=== PATIENT | female | born 2000 | race American Indian/Alaskan Native ===

== ENCOUNTER 2024-07-13 20:14 | Observation (INO) | payer OTHER, SELFPAY ==
[2024-07-13] VITALS (7 sets, daily range): BP systolic 140–151; BP diastolic 75–89; PULSE 125–140; RESP 18–32; TEMP 36.7; O2SAT 97–100; BMI 52.0
--- NOTE | 2024-07-13 20:43 | EKG_ITS ---
[place] [id number] [place] [id number] Test Date: 2024-07-13 Pat Name: Primo Syed Department: [facility] Room: Gender: Female Greek Professor: WESLEY : 2000 Requested By: Order Number: [id number] Reading MD: Ankur Rosario Measurements Intervals [place] Rate: 142 P: 23 MO: 130 QRS: 47 QRSD: 96 T: 0 QT: 282 QTc: 433 Interpretive Statements Critical Test Result: High HR Sinus tachycardia Electronically Signed On 07-15-2024 8:44:50 PDT by Ankur Rosario
--- NOTE | 2024-07-13 20:43 | PC.NURSE ---
pt has not felt good today, decreased intake today, aao x 3 resp even and unlabored
--- NOTE | 2024-07-13 20:43 | DI.RAD.S_ITS ---
PROCEDURE: XR CHEST 1V INDICATIONS: chest pain TECHNIQUE: One view of the chest was acquired. COMPARISON: None. FINDINGS: Surgical changes and devices: None. Lungs and pleura: Low lung volumes. No focal lung consolidation. No pleural effusions or pneumothorax. Mediastinum: Mediastinal contours appear normal. Heart size is normal. Bones and chest wall: No suspicious bony lesions. Overlying soft tissues appear unremarkable. IMPRESSION: No acute cardiothoracic process. Dictated by: Abe Braden M.D. on 07/13/2024 at 21:28 Approved by: Abe Braden M.D. on 07/13/2024 at 21:29
[2024-07-13 20:52] LABS: Add Manual Diff / Slide Review NO; Basophils Absolute Auto 0 /uL (0-100); Basophils Percent Auto 0.4 % (0-2); Eosinophils Absolute Auto 300 /uL (0-450); Eosinophils Percent Auto 2.5 % (2-4); Hematocrit 36.8 % (36-46); Hemoglobin 11.8 g/dL (12.0-16.0); Lymphocytes Absolute Auto 600 /uL (1100-4500); Lymphocytes Percent Auto 5.8 % (25-40); Mean Corpuscular HGB Conc 32.1 % (30-36); Mean Corpuscular Hemoglobin 22.9 PG (26-34); Mean Corpuscular Volume 71.4 fL (80-100); Monocytes Absolute Auto 700 /uL (0-900); Monocytes Percent Auto 6.1 % (3-14); Neutrophils Absolute Auto 9300 /uL (1500-7000); Neutrophils Percent Auto 85.2 % (50-75); Platelet Count 324 X10^3/uL (150-400); Red Blood Cell Count 5.15 X10^6/uL (4.0-5.2); Red Cell Distribution Width 16.3 % (11.6-14.8)
[2024-07-13 20:58] LABS: INR 1.2 (0.9-1.3); Prothrombin Time 13.3 SECONDS (9.4-12.5)
[2024-07-13 21:00] LABS: PTT Partial Thromboplastin Tim 36 SECONDS (25.1-36.5)
[2024-07-13 21:02] LABS: Alanine Aminotransferase 23 IU/L (<35); Albumin 4.5 g/dL (3.5-5.0); Alkaline Phosphatase 88 U/L (38-126); Aspartate Aminotransferase 34 IU/L (14-36); BUN Creatinine Ratio 7.8 (6-22); Bilirubin Total 0.6 mg/dL (0.2-1.3); Blood Urea Nitrogen 5 mg/dL (7-17); Carbon Dioxide 23 mmol/L (22-32); Chloride 102 mmol/L (98-107); Creatine Kinase 44 U/L (30-135); Estimated Glomerular Filt Rate > 60 mL/min (>60); Globulin 4.7 g/dL (1.7-4.1); Glucose 114 mg/dL (70-100); HEMOLYSIS < 15 (0-50); Lipase 87 U/L (23-300); Magnesium 1.6 mg/dL (1.6-2.3); Potassium 4.1 mmol/L (3.4-5.1); Sodium 135 mmol/L (137-145); Total Protein 9.2 g/dL (6.3-8.2)
[2024-07-13] MEDS: SODIUM CHLORIDE 0.9% 1,000 ML 1000 ML IV (21:07)
[2024-07-13 21:13] LABS: NT-proBNP (BNP-Adult 18+) < 20 pg/mL (<125); Troponin I < 0.012 ng/mL (0.01-0.034)
[2024-07-13 21:16] LABS: D Dimer 578 ng/ml (<500)
--- NOTE | 2024-07-13 21:38 | ED_ITS ---
HPI - Chest Pain General Chief Complaint: Chest Pain Stated Complaint: chest px, VILALLOBOS, nausea Time Seen by Provider: 07/13/24 21:36 Source: patient Mode of arrival: Ambulatory History of Present Illness HPI narrative: 24-year-old female without history of chronic heart or lung problems, no fast heart rate problems, was well yesterday, woke this morning with cough mostly nonproductive, occasional yellow sputum, no bloody sputum, increased shortness of breath, and fast heart rate sensation through the day today. No history of blood clots to legs or lungs. No leg pain or swelling symptoms. She has not take blood thinner medications. She has no heart problems known. No exposure to persons known to have recent respiratory illness symptoms. Denies abdominal pain. No nausea or vomiting, no diarrhea. No black or red stools. No recent bleeding, not currently on her menses, does not believe herself to be . Denies abdominal or back pain, no frequent or painful urination. Related Data Home Medications Medication Instructions Recorded Confirmed Tylenol 650 mg PO PRN PRN Pain (Scale 07/14/24 07/14/24 Score 1-3) Previous Rx's Medication Instructions Recorded oseltamivir 75 mg capsule (Tamiflu) 75 mg PO BID #8 caps 07/14/24 Allergies Allergy/AdvReac Type Severity Reaction Status Date / Time No Known Drug Allergies Allergy Verified 07/13/24 20:22 Patient History Social History household members: family Smoking Status: Never smoker alcohol intake: current Smoking Status: Never smoker Exam Narrative Exam Narrative: GENERAL: Well-developed patient, in mild distress. HEAD: Atraumatic. Normocephalic. EYES: Pupils equal round and reactive. Extraocular motions intact. No scleral icterus. No injection or drainage. ENT: Nose without bleeding, purulent drainage. Throat without erythema, tonsillar hypertrophy or exudate. Airway patent. NECK: Trachea midline. Non tender CARDIOVASCULAR: Fast rate regular rhythm, without murmurs, gallops, or rubs. RESPIRATORY: Clear to auscultation. Breath sounds equal bilaterally. No wheezes, rales, or rhonchi. GASTROINTESTINAL: Abdomen soft, non-tender, nondistended. EXTREMITIES: No edema or joint tenderness. BACK: Nontender without deformity or crepitance. No flank tenderness. NEURO: AOx3. Motor functions grossly nonfocal SKIN: No rash or erythema of visible areas Initial Vital Signs Initial Vital Signs: Vital Signs Temperature 98.0 F 07/13/24 20:22 Pulse Rate 140 H 07/13/24 20:22 Respiratory Rate 18 07/13/24 20:22 Blood Pressure 151/84 H 07/13/24 20:22 Pulse Oximetry 97 07/13/24 20:22 Oxygen Delivery Method Room Air 07/13/24 20:22 Course Orders Ordered: Discontinued Medications Acetaminophen (Acetaminophen 325 Mg Tablet) 975 mg PO NOW ONE Stop: 07/14/24 00:03 Last Admin: 07/14/24 00:08 Dose: 975 mg Documented By: CASSIDY Acetaminophen (Acetaminophen 325 Mg Tablet) 650 mg PO Q6H PRN PRN Reason: Fever/Mild Pain (1-3) Last Admin: 07/14/24 06:09 Dose: 650 mg Documented By: AT Albuterol (Albuterol 2.5 Mg/3 Ml Neb (Adult)) 2.5 mg INH [id number] PRN PRN Reason: Shortness Of Breath Enoxaparin Sodium (Enoxaparin 40 Mg/0.4 Ml Syringe) 40 mg SUBCUT BID [facility] Last Admin: 07/14/24 09:00 Dose: Not Given Documented By: ARRON Guaifenesin (Guaifenesin Er 600 Mg Tab) 600 mg PO BID [facility] Last Admin: 07/14/24 09:00 Dose: Not Given Documented By: ARRON Sodium Chloride (Normal Saline 0.9%) 1,000 mls @ 1,000 mls/hr IV BOLUS ONE Stop: 07/13/24 22:03 Last Infusion: 07/13/24 22:54 Dose: Infused Documented By: Admin: 07/13/24 21:07 Dose: 1,000 mls/hr Documented By: RL Sodium Chloride (Normal Saline 0.9%) 1,000 mls @ 1,000 mls/hr IV BOLUS ONE Stop: 07/14/24 01:01 Last Infusion: 07/14/24 01:29 Dose: Infused Documented By: Admin: 07/14/24 00:08 Dose: 1,000 mls/hr Documented By: CASSIDY Sodium Chloride (Normal Saline 0.9%) 1,000 mls @ 100 mls/hr IV CONT [facility] Last Admin: 07/14/24 04:38 Dose: 100 mls/hr Documented By: AT Naloxone HCl (Naloxone 0.4 Mg/Ml Vial) 0.2 mg IV Q2MIN PRN PRN Reason: Opiate Reversal Ondansetron HCl (Ondansetron 4 Mg/2 Ml Inj) 4 mg IV NOW ONE Stop: 07/14/24 01:53 Last Admin: 07/14/24 01:55 Dose: 4 mg Documented By: NAMRATA Ondansetron HCl (Ondansetron 4 Mg/2 Ml Inj) 4 mg IV Q4HR PRN PRN Reason: nausea Oseltamivir Phosphate (Oseltamivir 75 Mg Capsule) 75 mg PO NOW ONE Stop: 07/13/24 23:56 Last Admin: 07/14/24 00:09 Dose: 75 mg Documented By: CASSIDY Oseltamivir Phosphate (Oseltamivir 75 Mg Capsule) 75 mg PO BID [facility] Last Admin: 07/14/24 11:34 Dose: Not Given Documented By: ARRON Vital Signs Vital signs: Vital Signs - 8 hr 07/13/24 20:22 07/13/24 21:30 07/13/24 22:00 Temperature 98.0 F Pulse Rate 140 H 125 H 126 H Respiratory Rate 18 26 H 27 H Blood Pressure 151/84 H 147/75 H 140/88 Pulse Oximetry 97 100 100 Oxygen Delivery Method Room Air Room Air Room Air 07/13/24 22:30 07/13/24 23:00 07/13/24 23:30 Temperature Pulse Rate 127 H 129 H 127 H Respiratory Rate 32 H 25 H 26 H Blood Pressure 141/76 H 149/89 H Pulse Oximetry 100 100 100 Oxygen Delivery Method Room Air Room Air Room Air 07/13/24 23:34 07/14/24 00:00 07/14/24 00:12 Temperature Pulse Rate 128 H 128 H Respiratory Rate Blood Pressure 139/76 Pulse Oximetry 100 100 Oxygen Delivery Method 07/14/24 00:12 07/14/24 00:30 07/14/24 00:30 Temperature Pulse Rate 129 H 126 H Respiratory Rate Blood Pressure 146/73 H Pulse Oximetry 99 98 Oxygen Delivery Method 07/14/24 01:00 07/14/24 01:00 07/14/24 01:28 Temperature 98.5 F Pulse Rate 128 H Respiratory Rate Blood Pressure 144/74 H Pulse Oximetry 98 Oxygen Delivery Method Room Air 07/14/24 01:30 Temperature 98.5 F Pulse Rate Respiratory Rate Blood Pressure Pulse Oximetry Oxygen Delivery Method MDM - Chest Pain Lab Data Attestation: I reviewed the patient's lab results. Lab results narrative: White blood cell count 86212, hemoglobin 11.8, platelets adequate. Glucose 114. BUN 5 with creatinine 0.64 normal. Sodium 135, potassium 4.1, serum CO2 23. Liver functions and lipase normal. BNP negative unmeasurable. Troponin negative/unmeasurable. D-dimer five hundred seventy-eight elevated. 07/13/24 20:38 07/13/24 20:38 Labs: Lab Results 07/13/24 07/13/24 Range/Units 20:38 22:54 WBC 11.0 (4.5-11.0) X10^3/uL RBC 5.15 (4.0-5.2) X10^6/uL Hgb 11.8 L (12.0-16.0) g/dL Hct 36.8 (36-46) % MCV 71.4 L (80-100) fL MCH 22.9 L (26-34) PG MCHC 32.1 (30-36) % RDW 16.3 H (11.6-14.8) % Plt Count 324 (150-400) X10^3/uL Neut % (Auto) 85.2 H (50-75) % Lymph % (Auto) 5.8 L (25-40) % Long % (Auto) 6.1 (3-14) % Eos % (Auto) 2.5 (2-4) % Baso % (Auto) 0.4 (0-2) % Neut # (Auto) 9300 H (5873-9349) /uL Lymph # (Auto) 600 L (8036-2751) /uL Long # (Auto) 700 (0-900) /uL Eos # (Auto) 300 (0-450) /uL Baso # (Auto) 0 (0-100) /uL PT 13.3 H (9.4-12.5) SECONDS INR 1.2 (0.9-1.3) APTT 36 (25.1-36.5) SECONDS D-Dimer 578 H (<500) ng/ml Sodium 135 L (137-145) mmol/L Potassium 4.1 (3.4-5.1) mmol/L Chloride 102 (98-107) mmol/L Carbon Dioxide 23 (22-32) mmol/L BUN 5 L (7-17) mg/dL Creatinine 0.64 (0.52-1.04) mg/dL Estimated GFR > 60 (>60) mL/min BUN/Creatinine Ratio 7.8 (6-22) Glucose 114 H (70-100) mg/dL Calcium 9.0 (8.4-10.2) mg/dL Magnesium 1.6 (1.6-2.3) mg/dL Total Bilirubin 0.6 (0.2-1.3) mg/dL AST 34 (14-36) IU/L ALT 23 (<35) IU/L Alkaline Phosphatase 88 (38-126) U/L Total Creatine Kinase 44 (30-135) U/L Troponin I < 0.012 (0.01-0.034) ng/mL NT-Pro-B Natriuret Pep < 20 (<125) pg/mL Total Protein 9.2 H (6.3-8.2) g/dL Albumin 4.5 (3.5-5.0) g/dL Globulin 4.7 H (1.7-4.1) g/dL Albumin/Globulin Ratio 1.0 (1.0-2.8) Lipase 87 (23-300) U/L TSH 0.46 L (0.47-4.68) uIU/mL Free T4 0.93 (0.78-2.19) ng/dL Serum , Qual Negative (Negative) Chlamy pneumoniae PCR Not detected (Not Detect) Adenovirus (PCR) Not detected (Not Detect) B. pertussis DNA (PCR) Not detected (Not Detect) B.parapertussis DNA PCR Not detected (Not Detecte) Coronavirus OC43 (PCR) Not detected (Not Detect) Coronavirus HKU1 (PCR) Not detected (Not Detect) Coronavirus 229E (PCR) Not detected (Not Detect) SARS-CoV-2 (PCR) Not detected (Not Detecte) Coronavirus NL63 (PCR) Not detected (Not Detect) Human Metapneumovir PCR Not detected (Not Detect) Influ A (H1N1 Se[place]) PCR Detected H (Not Detect) Influenza Type B (PCR) Not detected (Not Detect) M. pneumoniae (PCR) Not detected (Not Detect) Parainfluenza 1 (PCR) Not detected (Not Detect) Parainfluenza 2 (PCR) Not detected (Not Detect) Parainfluenza 3 (PCR) Not detected (Not Detect) Parainfluenza 4 (PCR) Not detected (Not Detect) RSV (PCR) Not detected (Not Detect) Entero/Rhino (PCR) Not detected (Not Detect) Imaging Data Chest x-ray: Radiologist's Impression: [address] [address] XRay Report Signed Patient: Primo Syed MR#: [id number] : 2000 Acct:[id number] Age/Sex: 24 / F Date of Service: 07/13/24 Loc: ED Accession Number: [id number] Procedure: XR chest 1V Ordering Provider: Narendra Ayon MD PROCEDURE: XR CHEST 1V INDICATIONS: chest pain TECHNIQUE: One view of the chest was acquired. COMPARISON: None. FINDINGS: Surgical changes and devices: None. Lungs and pleura: Low lung volumes. No focal lung consolidation. No pleural effusions or pneumothorax. Mediastinum: Mediastinal contours appear normal. Heart size is normal. Bones and chest wall: No suspicious bony lesions. Overlying soft tissues appear unremarkable. IMPRESSION: No acute cardiothoracic process. Dictated by: Abe Braden M.D. on 07/13/2024 at 21:28 Approved by: Abe Braden M.D. on 07/13/2024 at 21:29 CT angiogram chest: Radiologist's Impression: [address] [address] [address] Scan Report Signed Patient: Primo Syed MR#: [id number] : 2000 Acct:[id number] Age/Sex: 24 / F Date of Service: 07/13/24 Loc: ED Accession Number: [id number] Procedure: CT angio chest PE protocol Ordering Provider: Narendra Ayon MD PROCEDURE: CT ANGIO CHEST PE PROTOCOL INDICATIONS: tachycardia 140, Ddimer positive TECHNIQUE: After the administration of intravenous contrast, 2 mm thick sections acquired from the pulmonary apices to the posterior costophrenic angles. 3-dimensional maximum intensity projection (MIP) coronal and sagittal reformats were then acquired through the thorax. For radiation dose reduction, the following was used: automated exposure control, adjustment of mA and/or kV according to patient size. COMPARISON: [facility], CR, XR CHEST 1V, 07/13/2024, 21:01. FINDINGS: Image quality: Diagnostic. Thyroid: Within normal limits. Cardiac: Heart size within normal limits. No pericardial effusion. RV: LV ratio within normal limits. No bowing of the interventricular septum. No reflux of contrast into the hepatic veins. Aorta: Thoracic aortic diameter within normal limits. Pulmonary Artery: Main pulmonary artery trunk diameter mildly dilated 3.3 cm. No central filling defect in the left/right pulmonary arterial trunks. Further distal evaluation is limited due to suboptimal arterial opacification. Lungs: No focal lung consolidation. Pleura: No pneumothorax or pleural effusion. Airways: The trachea and mainstem bronchi are patent. Lymph Nodes: No mediastinal, hilar, or axillary lymphadenopathy. Esophagus: Within normal limits. Bones: No acute osseous abnormality. Upper Abdomen: Within normal limits. IMPRESSION: 1. No CT evidence of pulmonary embolism in the left/right pulmonary arterial trunks. Further distal evaluation limited. 2. Mildly dilated pulmonary arterial trunk diameter, suggestive of pulmonary arterial hypertension. Dictated by: Abe Braden M.D. on 07/13/2024 at 22:25 Approved by: Abe Braden M.D. on 07/13/2024 at 22:29 ECG Data Attestation: I personally reviewed and interpreted this ECG as follows: Interpretation: Sinus tachycardia with rate of 142, narrow complex, no obvious ST segment elevation or depression changes. T-wave inversion lead 3 but upright in other contiguous inferior leads 2 and F. IL 130, QRS 96, QTC 433. MDM Narrative Medical decision making narrative: 24-year-old female with no prior heart or lung problems known, with new cough since this morning, increasing shortness of breath and fast heart rate sensation through the day today. Tachycardia on examination noted, no obvious murmur, no lower extremity edema, speaking in full sentences speech. EKG shows narrow complex sinus tachycardia 140. Initial labs: White blood cell count [address]398, hemoglobin 11.8, platelets adequate. Glucose 114. BUN 5 with creatinine 0.64 normal. Sodium 135, potassium 4.1, serum CO2 23. Liver functions and lipase normal. BNP negative unmeasurable. Troponin negative/unmeasurable. D-dimer 587 mild elevation. HCG negative. CTA chest shows no pulmonary embolus, no mention of congestive heart failure fluid overload changes, no infiltrates, no pericardial effusion by CT scanning criteria. Possible pulmonary hypertension changes. See radiology report. Respiratory panel positive for influenza A (H1N1), otherwise negative. P.o. Tamiflu dose given. Patient with heart rate 115 range decreased some, we will repeat IV fluid bolus. Oral Tylenol. Dialed to her 2 L oxygen down to room air with 100% sats noted. If she has persisting tachycardia or recurrent hypoxia consider admission. Otherwise attempt to wean off oxygen and improved heart rate for outpatient treatment, further Tamiflu. 0145, patient has been here now over 5 hours, IV fluids, antipyretics, influenza identified, oral Tamiflu given, no pulmonary embolus or infiltrates on CTA chest imaging, no longer seems to have oxygen requirement, no SVN/albuterol used, but persisting sinus tachycardia 130, will contact hospitalist regarding possible admission. Patient agreeable. Patient had nausea and episode of nonbloody emesis, IV Zofran ordered. 0300, case discussed with hospitalist Dr. Henson who accepts patient for admission to observation. Critical Care Time Critical Care Time Critical Care Time: Yes Total Critical Care Time: 35 Attestation: The high probability of a clinically significant, sudden or life threatening deterioration of the [cardiopulmonary] system(s) required my full and direct attention, intervention and personal management. The aggregate critical care time was [35] minutes. This time is in addition to time spent performing reported procedures but includes the following: [x] Data Review and interpretation [x] Patient assessment and monitoring of vital signs [x] Documentation [x] Medication orders and management Discharge Plan Departure Patient Disposition: Admitted as Observation Clinical Impression: Influenza A, Sinus tachycardia Admit Date/Time: 07/14/24 03:09 Admit Provider: Merritt Escoto
[2024-07-13 21:55] LABS: Pregnancy Test Serum,Qual Negative (Negative)
--- NOTE | 2024-07-13 22:13 | PC.NURSE ---
ambulatory to CT
[2024-07-13 23:46] LABS: Adenovirus Not Detected (Not Detect); B. parapertussis Not Detected (Not Detecte); Bordetella pertussis Not Detected (Not Detect); Chlamydophila pneumoniae Not Detected (Not Detect); Coronavirus 229E Not Detected (Not Detect); Coronavirus HKU1 Not Detected (Not Detect); Coronavirus NL 63 Not Detected (Not Detect); Coronavirus OC43 Not Detected (Not Detect); Human Metapneumovirus Not Detected (Not Detect); Human Rhinovirus/Enterovirus Not Detected (Not Detect); Influenza A H1-2009 Detected (Not Detect); Influenza B Not Detected (Not Detect); Mycoplasma pneumoniae Not Detected (Not Detect); Parainfluenza Virus 1 Not Detected (Not Detect); Parainfluenza Virus 2 Not Detected (Not Detect); Parainfluenza Virus 3 Not Detected (Not Detect); Parainfluenza Virus 4 Not Detected (Not Detect); Respiratory Syncytial Virus Not Detected (Not Detect); SARS- CoV-2 Not Detected (Not Detecte)
[2024-07-14] VITALS (13 sets, daily range): BP systolic 124–146; BP diastolic 58–92; PULSE 115–133; RESP 20–24; TEMP 36.9–37.1; O2SAT 95–100; BMI 52.0
[2024-07-14] MEDS: SODIUM CHLORIDE 0.9% 1,000 ML 1000 ML IV (00:08)
[2024-07-14] MEDS: ACETAMINOPHEN 325 MG TABLET 975 MG PO (00:08)
[2024-07-14] MEDS: OSELTAMIVIR 75 MG CAPSULE PO (00:09)
[2024-07-14] MEDS: ONDANSETRON 4 MG/2 ML INJ IV (01:55)
--- NOTE | 2024-07-14 03:55 | DI.ECHO.S_ITS ---
[facility]---------+ [facility] : : [address] : : [place] : : [id number] : : Phone: [phone] Echocardiogram Report + :Name: GWEN GARCIA Study Date: 07/14/2024 Height: 26 in : :[facility] ReadingLocation: Weight: 710 lb : : Gender: Female BSA: 1.7 m2 : :: 2000 Age: 24 yrs BP: 124/58 mmHg: :Reason For Study: Pulmonary - Hypertension : :Ordering Physician: COLE : :ANNA WEST Performed By: Anh Rees : :Referring: ANNA CASTELLANO : + Interpretation Summary Technically difficult study secondary to poor acoustic windows. 1. The left ventricular contractility is normal. Estimate ejection fraction is greater than 60% with no segmental wall motion abnormalities. No LVH. Unable to comment on diastolic function 2. The right ventricular contractility appears to be grossly normal. 3. All cardiac chambers appears grossly normal in size. 4. No obvious valvular abnormalities. No evidence of pulmonary hypertension. 5. No obvious intracardiac shunts. 6. No obvious intracardiac masses nor thrombi. 7. No hemodynamically significant pericardial effusion. 8. Low right-sided filling pressures. Conclusion: Normal biventricular systolic function without obvious valvular abnormalities. Procedure: A two-dimensional transthoracic echocardiogram with color flow and Doppler was performed. The study quality was technically adequate. There is no prior echocardiogram noted for this patient. The heart rate ranged between 118-120 bpm during the study. Left Ventricle: The left ventricle is normal in size and wall thickness. The ejection fraction is estimated to be 55-60%. Diastolic function could not be accurately assessed due to tachycardia. Right Ventricle: The right ventricle grossly appears normal in size with probable normal systolic function. Atria: The left atrial size is normal. Right atrial size is normal. The interatrial septum grossly appears intact with no obvious evidence for an atrial septal defect. Mitral Valve: The mitral valve is normal in structure and function. There is no mitral regurgitation noted. Aortic Valve: The aortic valve opens well. No aortic regurgitation is present. Tricuspid Valve: The tricuspid valve leaflets are thin and pliable. No tricuspid regurgitation. Pulmonic Valve: The pulmonic valve is not well visualized. There is no pulmonic valvular regurgitation. Great Vessels: The aortic root is normal size. The ascending aorta is normal in size. The aortic arch is normal in size. The IVC is of normal diameter and collapses greater than 50% with a sniff. This suggests a low right atrial pressure of 3 mm Hg. Pericardium/ Pleura There is no pericardial effusion. There is no pleural effusion. MMode/2D Measurements & Calculations LVIDd: 4.9 cm LVOT diam: 2.0 cm LVIDs: 3.2 cm Ao root diam: 2.6 cm FS: 35.3 % asc Aorta Diam: 2.3 cm EPSS: 0.87 cm Ao Arch Diam (Prox Trans): 2.4 cm IVSd: 0.91 cm LVPWd: 0.84 cm LV asencio. diameter/BSA (cm/m^2): 2.8 LV sys. diameter/BSA (cm/m^2): 1.8 LA A2 area: 21.5 cm2 RA long axis: 5.4 cm LA A4 area: 22.4 cm2 RA area: 14.7 cm2 LA length (vol): 6.5 cm RA vol: 33.8 ml LA vol: 63.4 ml RA : 19.4 ml/m2 LA vol index: 36.4 ml/m2 IVC diam: 1.6 cm RVD1 (basal): 2.4 cm TAPSE: 2.0 cm Doppler Measurements & Calculations Ao V2 max: 197.9 cm/sec LVOT Max Dave: 123.8 cm/sec Ao V2 mean: 139.0 cm/sec LV V1 max P.1 mmHg Ao max P.7 mmHg LV V1 VTI: 21.7 cm Ao mean P.5 mmHg SHANAE(I,D): 2.1 cm2 Ao V2 VTI: 34.1 cm SHANAE(V,D): 2.0 cm2 sev ratio: 0.64 SHANAE indexed to BSA (cm^2/m^2): 1.2 MVA(VTI): 2.9 cm2 PA V2 max: 115.4 cm/sec PA V2 mean: 75.5 cm/sec PA mean P.7 mmHg PA pr(Accel): 41.7 mmHg MV V2 mean: 89.9 cm/sec SV(LVOT): 70.0 ml MV mean P.2 mmHg MV V2 VTI: 24.1 cm Reading Physician:DRU
--- NOTE | 2024-07-14 03:58 | P.HP_ITS ---
History of Present Illness History of Present Illness Chief complaint: chest px, VILLALOBOS, nausea Narrative: 24 y/o with no PMH was as usual until earlier today when she started to cough, feel short of breath and weak and to have headache. She was feeling her heart pounding. Workup shows influenza A, sinus tachycardia and elevated D dimer with CTA negative for PE in large airways only. Tachypneic and saturates in mid 90- ies on room air. TSH, CPK, troponin WNR. Initially hypertensive In the ED she had 2 L of NS and Tamiflu that she likely threw up. Continues to have sinus tachycardia ~ 120-130. Placed in observation for telemetry monitoring and further work up. [facility] Social History household members: family Smoking Status: Never smoker alcohol intake: current Meds Home Medications and Allergies Home Medications Medication Instructions Recorded Confirmed Type Tylenol 650 mg PO PRN PRN Pain (Scale 07/14/24 07/14/24 History Score 1-3) Allergies Allergy/AdvReac Type Severity Reaction Status Date / Time No Known Drug Allergies Allergy Verified 07/13/24 20:22 Review of Systems Constitutional Comments: generalized weakness, w/o fever, chills or sweats Cardiovascular Comments: palpitations Respiratory Comments: cough, short of breath Gastrointestinal Comments: nausea, vomited several times, last in the ED Neurologic Comments: headache Exam Vital Signs (past 8 hours): - 07/13/24 20:22 07/13/24 21:30 07/13/24 22:00 Temperature 98.0 F Pulse Rate 140 H 125 H 126 H Respiratory Rate 18 26 H 27 H Blood Pressure 151/84 H 147/75 H 140/88 Pulse Oximetry 97 100 100 Oxygen Delivery Method Room Air Room Air Room Air 07/13/24 22:30 07/13/24 23:00 07/13/24 23:30 Temperature Pulse Rate 127 H 129 H 127 H Respiratory Rate 32 H 25 H 26 H Blood Pressure 141/76 H 149/89 H Pulse Oximetry 100 100 100 Oxygen Delivery Method Room Air Room Air Room Air 07/13/24 23:34 07/14/24 00:00 07/14/24 00:12 Temperature Pulse Rate 128 H 128 H Respiratory Rate Blood Pressure 139/76 Pulse Oximetry 100 100 Oxygen Delivery Method 07/14/24 00:12 07/14/24 00:30 07/14/24 00:30 Temperature Pulse Rate 129 H 126 H Respiratory Rate Blood Pressure 146/73 H Pulse Oximetry 99 98 Oxygen Delivery Method 07/14/24 01:00 07/14/24 01:00 07/14/24 01:28 Temperature 98.5 F Pulse Rate 128 H Respiratory Rate Blood Pressure 144/74 H Pulse Oximetry 98 Oxygen Delivery Method Room Air 07/14/24 01:30 07/14/24 01:30 07/14/24 01:30 Temperature 98.5 F Pulse Rate 128 H Respiratory Rate Blood Pressure 145/88 H Pulse Oximetry 99 Oxygen Delivery Method 07/14/24 01:59 07/14/24 03:01 07/14/24 03:03 Temperature Pulse Rate 132 H 133 H Respiratory Rate Blood Pressure 132/92 H Pulse Oximetry 97 97 Oxygen Delivery Method 07/14/24 03:30 Temperature Pulse Rate 131 H Respiratory Rate Blood Pressure Pulse Oximetry 95 Oxygen Delivery Method Oxygen Delivery Method Room Air Narrative Exam Narrative: General - in no distress, appears tired, sleepy. Obese. CVS - regular, tachycardic, w/o murmurs but suboptimal auscultation HEENT - thick, short neck, supple RS - tachypneic, not wheezy Ext - w/o edema Neuro / Psych - w/o deficits, lucid, somewhat slow to process Objective ECG Impression: Sinus tachycardia [address] scan - chest: Radiologist's impression: 1. No CT evidence of pulmonary embolism in the left/right pulmonary arterial trunks. Further distal evaluation limited. 2. Mildly dilated pulmonary arterial trunk diameter, suggestive of pulmonary arterial hypertension. Labs 07/13/24 20:38 07/13/24 20:38 Labs: Laboratory Results - last 24 hr 07/13/24 07/13/24 20:38 22:54 WBC 11.0 RBC 5.15 Hgb 11.8 L Hct 36.8 MCV 71.4 L MCH 22.9 L MCHC 32.1 RDW 16.3 H Plt Count 324 Neut % (Auto) 85.2 H Lymph % (Auto) 5.8 L [place] % (Auto) 6.1 Eos % (Auto) 2.5 Baso % (Auto) 0.4 Neut # (Auto) 9300 H Lymph # (Auto) 600 L [place] # (Auto) 700 Eos # (Auto) 300 Baso # (Auto) 0 PT 13.3 H INR 1.2 APTT 36 D-Dimer 578 H Sodium 135 L Potassium 4.1 Chloride 102 Carbon Dioxide 23 BUN 5 L Creatinine 0.64 Estimated GFR > 60 BUN/Creatinine Ratio 7.8 Glucose 114 H Calcium 9.0 Magnesium 1.6 Total Bilirubin 0.6 AST 34 ALT 23 Alkaline Phosphatase 88 Total Creatine Kinase 44 Troponin I < 0.012 NT-Pro-B Natriuret Pep < 20 Total Protein 9.2 H Albumin 4.5 Globulin 4.7 H Albumin/Globulin Ratio 1.0 Lipase 87 Serum , Qual Negative Chlamy pneumoniae PCR Not detected Adenovirus (PCR) Not detected B. pertussis DNA (PCR) Not detected B.parapertussis DNA PCR Not detected Coronavirus OC43 (PCR) Not detected Coronavirus HKU1 (PCR) Not detected Coronavirus 229E (PCR) Not detected SARS-CoV-2 (PCR) Not detected Coronavirus NL63 (PCR) Not detected Human Metapneumovir PCR Not detected Influ A (H1N1 Seas) PCR Detected H Influenza Type B (PCR) Not detected M. pneumoniae (PCR) Not detected Parainfluenza 1 (PCR) Not detected Parainfluenza 2 (PCR) Not detected Parainfluenza 3 (PCR) Not detected Parainfluenza 4 (PCR) Not detected RSV (PCR) Not detected Entero/Rhino (PCR) Not detected Assessment & Plan Assessment and plan (1) Influenza A with respiratory manifestations: Status: Acute (2) Sinus tachycardia: Status: Acute Assessment & Plan narrative: Influenza A - Tamiflu - Mucinex, prn albuterol - prn Zofran Sinus Tachycardia - TSH, troponin, CPK WNR - telemetry monitoring - CTA could not r/o distal PE but she is neither hypoxemic nor hypotensive. It also shows likely pulmonary HTN. - echo pending - IVFs DVT prophylaxis - Lovenox Time-Based Coding :: [TOTAL MINUTES] spent with patient and on the chart (including review of chart, obtaining history, exam, reviewing outside data, placing orders, documenting exam and treatment plan, and counseling patient) on [DATE].
[2024-07-14] MEDS: SODIUM CHLORIDE 0.9% 1,000 ML 100 ML IV (04:38)
[2024-07-14 04:47] LABS: TSH w/ Reflex to FT4 0.46 uIU/mL (0.47-4.68)
[2024-07-14 05:30] LABS: Free T4, Direct Thyroxine 0.93 ng/dL (0.78-2.19)
[2024-07-14 05:51] LABS: Hemoglobin A1C% w Est Avg Glu 5.1 % (4.0-6.0)
[2024-07-14 05:57] LABS: Creatine Kinase 45 U/L (30-135)
[2024-07-14] MEDS: ACETAMINOPHEN 325 MG TABLET 650 MG PO (06:09)
[2024-07-14 06:10] LABS: Troponin I < 0.012 ng/mL (0.01-0.034)
--- NOTE | 2024-07-14 08:38 | P.HP_ITS ---
History of Present Illness History of Present Illness Date Patient Seen: 07/14/24 Time Patient Seen: 07:43 Chief complaint: chest px, VILLALOBOS, nausea Narrative: From night hospitalist: 24 y/o with no PMH was as usual until earlier today when she started to cough, feel short of breath and weak and to have headache. She was feeling her heart pounding. Workup shows influenza A, sinus tachycardia and elevated D dimer with CTA negative for PE in large airways only. Tachypneic and saturates in mid 90- ies on room air. TSH, CPK, troponin WNR. Initially hypertensive In the ED she had 2 L of NS and Tamiflu that she likely threw up. Continues to have sinus tachycardia ~ 120-130. Placed in observation for telemetry monitoring and further work up. Interval history: She reports fatigue without chest pain, shortness of breath, rash, nausea or vomiting. [facility] Social History household members: family Smoking Status: Never smoker alcohol intake: current Meds Home Medications and Allergies Home Medications Medication Instructions Recorded Confirmed Type Tylenol 650 mg PO PRN PRN Pain (Scale 07/14/24 07/14/24 History Score 1-3) Allergies Allergy/AdvReac Type Severity Reaction Status Date / Time No Known Drug Allergies Allergy Verified 07/13/24 20:22 Review of Systems Review of Systems ROS: Yes All systems reviewed with the patient and are negative except as otherwise documented Exam Vital Signs (past 8 hours): - 07/14/24 00:00 07/14/24 00:12 07/14/24 00:12 Temperature Pulse Rate 128 H 129 H Respiratory Rate Blood Pressure 139/76 Pulse Oximetry 100 99 Oxygen Delivery Method Oxygen Flow Rate 07/14/24 00:30 07/14/24 00:30 07/14/24 01:00 Temperature Pulse Rate 126 H Respiratory Rate Blood Pressure 146/73 H 144/74 H Pulse Oximetry 98 Oxygen Delivery Method Oxygen Flow Rate 07/14/24 01:00 07/14/24 01:28 07/14/24 01:30 Temperature 98.5 F 98.5 F Pulse Rate 128 H Respiratory Rate Blood Pressure Pulse Oximetry 98 Oxygen Delivery Method Room Air Oxygen Flow Rate 07/14/24 01:30 07/14/24 01:30 07/14/24 01:59 Temperature Pulse Rate 128 H 132 H Respiratory Rate Blood Pressure 145/88 H Pulse Oximetry 99 97 Oxygen Delivery Method Oxygen Flow Rate 07/14/24 03:01 07/14/24 03:03 07/14/24 03:30 Temperature Pulse Rate 133 H 131 H Respiratory Rate Blood Pressure 132/92 H Pulse Oximetry 97 95 Oxygen Delivery Method Oxygen Flow Rate 07/14/24 03:30 07/14/24 04:00 07/14/24 04:00 Temperature Pulse Rate 133 H Respiratory Rate Blood Pressure 137/67 141/65 H Pulse Oximetry 95 Oxygen Delivery Method Oxygen Flow Rate 07/14/24 04:20 07/14/24 04:47 07/14/24 08:00 Temperature 98.7 F Pulse Rate 129 H 115 H Respiratory Rate 24 20 Blood Pressure 124/58 L Pulse Oximetry 96 95 Oxygen Delivery Method Room Air Oxygen Flow Rate 0 0 Oxygen Delivery Method Room Air Oxygen Flow Rate 0 Narrative Exam Narrative: GENERAL: This is a pleasant obese female patient, in no apparent distress. HEAD: Atraumatic. Normocephalic. No temporal or scalp tenderness. EYES: Pupils equal round and reactive. Extraocular motions intact. No scleral icterus. No injection or drainage. ENT: Mucous membranes pink and moist. NECK: Trachea midline. No JVD, bruits or lymphadenopathy. Supple, nontender, no meningeal signs. CARDIOVASCULAR: Tachycardic rhythm without murmurs, gallops, or rubs. RESPIRATORY: Clear to auscultation. GASTROINTESTINAL: Abdomen soft, non-tender, nondistended. EXTREMITIES: No clubbing, cyanosis, or edema. BACK: Nontender without deformity or crepitance. No flank tenderness. NEUROLOGIC: Alert, oriented, speech fluent, full upper and lower motor strength, no focal deficits evident. DERMATOLOGIC: No rashes or skin lesions. Objective ECG Impression: Sinus tachycardia at 142bpm, otherwise normal EKG Imaging Chest x-ray: Radiologist's impression: No acute cardiothoracic process. 07/13 CT scan - chest: Radiologist's impression: 1. No CT evidence of pulmonary embolism in the left/right pulmonary arterial trunks. Further distal evaluation limited. 2. Mildly dilated pulmonary arterial trunk diameter, suggestive of pulmonary arterial hypertension. 07/13 Labs 07/13/24 20:38 07/13/24 20:38 Labs: Laboratory Results - last 24 hr 07/13/24 07/13/24 07/14/24 20:38 22:54 05:35 WBC 11.0 RBC 5.15 Hgb 11.8 L Hct 36.8 MCV 71.4 L MCH 22.9 L MCHC 32.1 RDW 16.3 H Plt Count 324 Neut % (Auto) 85.2 H Lymph % (Auto) 5.8 L [place] % (Auto) 6.1 Eos % (Auto) 2.5 Baso % (Auto) 0.4 Neut # (Auto) 9300 H Lymph # (Auto) 600 L [place] # (Auto) 700 Eos # (Auto) 300 Baso # (Auto) 0 PT 13.3 H INR 1.2 APTT 36 D-Dimer 578 H Sodium 135 L Potassium 4.1 Chloride 102 Carbon Dioxide 23 BUN 5 L Creatinine 0.64 Estimated GFR > 60 BUN/Creatinine Ratio 7.8 Glucose 114 H Hemoglobin A1c 5.1 Calcium 9.0 Magnesium 1.6 Total Bilirubin 0.6 AST 34 ALT 23 Alkaline Phosphatase 88 Total Creatine Kinase 44 45 Troponin I < 0.012 < 0.012 NT-Pro-B Natriuret Pep < 20 Total Protein 9.2 H Albumin 4.5 Globulin 4.7 H Albumin/Globulin Ratio 1.0 Lipase 87 TSH 0.46 L Free T4 0.93 Serum , Qual Negative Chlamy pneumoniae PCR Not detected Adenovirus (PCR) Not detected B. pertussis DNA (PCR) Not detected B.parapertussis DNA PCR Not detected Coronavirus OC43 (PCR) Not detected Coronavirus HKU1 (PCR) Not detected Coronavirus 229E (PCR) Not detected SARS-CoV-2 (PCR) Not detected Coronavirus NL63 (PCR) Not detected Human Metapneumovir PCR Not detected Influ A (H1N1 Seas) PCR Detected H Influenza Type B (PCR) Not detected M. pneumoniae (PCR) Not detected Parainfluenza 1 (PCR) Not detected Parainfluenza 2 (PCR) Not detected Parainfluenza 3 (PCR) Not detected Parainfluenza 4 (PCR) Not detected RSV (PCR) Not detected Entero/Rhino (PCR) Not detected Assessment & Plan Assessment and plan (1) Influenza A with respiratory manifestations: Status: Acute (2) Sinus tachycardia: Status: Acute Assessment & Plan narrative: Influenza A - Tamiflu - Mucinex, prn albuterol - prn Zofran Sinus Tachycardia - TSH, troponin, CPK WNR - telemetry monitoring - CTA could not r/o distal PE but she is neither hypoxemic nor hypotensive. It also shows likely pulmonary HTN. - no clear indication for echo, canceled, monitor - IVFs DVT prophylaxis - Lovenox Code: Full code; her mother at bedside is her surrogate decision-maker. Care reviewed. Quality MIPS - Admit I confirm the patient?s Advance Care Plan is present, Code status is documented, Surrogate decision maker is in patient?s record [If Yes, STOP here]: Yes MIPS - Meds 'Current medications' to include all prescriptions, [id number] products, herbals, cannabis/cannabidiol products, and vitamin/mineral/dietary (nutritional) supplements. I have utilized all available resources to obtain, update, or review the patient?s current medications. [If Yes, STOP here]: Yes PROFEE Counter Helper Document charge(s): No Charge Codes Initial inpatient/observation care: 14831
--- NOTE | 2024-07-14 10:56 | PM.DS.IH.1 ---
History of Present Illness History of Present Illness Chief complaint: chest px, VILLALOBOS, nausea Narrative: From night hospitalist: 24 y/o with no PMH was as usual until earlier today when she started to cough, feel short of breath and weak and to have headache. She was feeling her heart pounding. Workup shows influenza A, sinus tachycardia and elevated D dimer with CTA negative for PE in large airways only. Tachypneic and saturates in mid 90-ies on room air. TSH, CPK, troponin WNR. Initially hypertensive In the ED she had 2 L of NS and Tamiflu that she likely threw up. Continues to have sinus tachycardia ~ 120-130. Placed in observation for telemetry monitoring and further work up. Interval history: She reports fatigue without chest pain, shortness of breath, rash, nausea or vomiting. Discharge Providers Provider Date of admission: 07/14/24 03: Discharge Date: 07/14/24 Primary care physician: Doctor Rayray MD Discharge provider: Daniel Valladares MD Summary Hospital Course Discharge Diagnosis: 1. Acute influenza a infection 2. Sinus tachycardia due to 1. Hospital Course: The patient was admitted and hydrated intravenously. Heart rates improved into the low 110s beats per minute range. She was treated with Tamiflu. She otherwise felt well throughout her hospitalization. Given her trending improvement she was interested in discharge home. No other issues arose. Status at Discharge Cognitive/behavioral status at discharge: oriented Functional status at discharge: independent ambulation Overall status at discharge: patient is back to baseline Time Spent with Patient Time spent: Less than 30 minutes Exam Vital Signs (past 8 hours): - 07/14/24 01:59 07/14/24 03:01 07/14/24 03:03 Temperature Pulse Rate 132 H 133 H Respiratory Rate Blood Pressure 132/92 H Pulse Oximetry 97 97 Oxygen Delivery Method Oxygen Flow Rate 07/14/24 03:30 07/14/24 03:30 07/14/24 04:00 Temperature Pulse Rate 131 H 133 H Respiratory Rate Blood Pressure 137/67 Pulse Oximetry 95 95 Oxygen Delivery Method Oxygen Flow Rate 07/14/24 04:00 07/14/24 04:20 07/14/24 04:47 Temperature 98.7 F Pulse Rate 129 H Respiratory Rate 24 Blood Pressure 141/65 H 124/58 L Pulse Oximetry 96 Oxygen Delivery Method Room Air Oxygen Flow Rate 0 07/14/24 08:00 Temperature Pulse Rate 115 H Respiratory Rate 20 Blood Pressure Pulse Oximetry 95 Oxygen Delivery Method Oxygen Flow Rate 0 Oxygen Delivery Method Room Air Oxygen Flow Rate 0 Narrative Exam Narrative: GENERAL: This is a pleasant obese female patient, in no apparent distress. EYES: Pupils equal round and reactive. Extraocular motions intact. No scleral icterus. No injection or drainage. ENT: Mucous membranes pink and moist. NECK: Trachea midline. No JVD, bruits or lymphadenopathy. Supple, nontender, no meningeal signs. CARDIOVASCULAR: Tachycardic rhythm without murmurs, gallops, or rubs. RESPIRATORY: Clear to auscultation. GASTROINTESTINAL: Abdomen soft, non-tender, nondistended. EXTREMITIES: No clubbing, cyanosis, or edema. NEUROLOGIC: Alert, oriented, speech fluent, full upper and lower motor strength, no focal deficits evident. DERMATOLOGIC: No rashes or skin lesions. Objective Labs 07/13/24 20:38 07/13/24 20:38 Labs: Laboratory Results - last 24 hr 07/13/24 07/13/24 07/14/24 20:38 22:54 05:35 WBC 11.0 RBC 5.15 Hgb 11.8 L Hct 36.8 MCV 71.4 L MCH 22.9 L MCHC 32.1 RDW 16.3 H Plt Count 324 Neut % (Auto) 85.2 H Lymph % (Auto) 5.8 L [place] % (Auto) 6.1 Eos % (Auto) 2.5 Baso % (Auto) 0.4 Neut # (Auto) 9300 H Lymph # (Auto) 600 L [place] # (Auto) 700 Eos # (Auto) 300 Baso # (Auto) 0 PT 13.3 H INR 1.2 APTT 36 D-Dimer 578 H Sodium 135 L Potassium 4.1 Chloride 102 Carbon Dioxide 23 BUN 5 L Creatinine 0.64 Estimated GFR > 60 BUN/Creatinine Ratio 7.8 Glucose 114 H Hemoglobin A1c 5.1 Calcium 9.0 Magnesium 1.6 Total Bilirubin 0.6 AST 34 ALT 23 Alkaline Phosphatase 88 Total Creatine Kinase 44 45 Troponin I < 0.012 < 0.012 NT-Pro-B Natriuret Pep < 20 Total Protein 9.2 H Albumin 4.5 Globulin 4.7 H Albumin/Globulin Ratio 1.0 Lipase 87 TSH 0.46 L Free T4 0.93 Serum , Qual Negative Chlamy pneumoniae PCR Not detected Adenovirus (PCR) Not detected B. pertussis DNA (PCR) Not detected B.parapertussis DNA PCR Not detected Coronavirus OC43 (PCR) Not detected Coronavirus HKU1 (PCR) Not detected Coronavirus 229E (PCR) Not detected SARS-CoV-2 (PCR) Not detected Coronavirus NL63 (PCR) Not detected Human Metapneumovir PCR Not detected Influ A (H1N1 Seas) PCR Detected H Influenza Type B (PCR) Not detected M. pneumoniae (PCR) Not detected Parainfluenza 1 (PCR) Not detected Parainfluenza 2 (PCR) Not detected Parainfluenza 3 (PCR) Not detected Parainfluenza 4 (PCR) Not detected RSV (PCR) Not detected Entero/Rhino (PCR) Not detected PFSH Social History household members: family Smoking Status: Never smoker alcohol intake: current Discharge Plan Discharge Plan Patient Disposition: Home Discharge orders & Medications Prescriptions: New oseltamivir [Tamiflu] 75 mg Capsule 75 mg PO BID Qty: 8 0RF Continued Tylenol 650 mg PO PRN PRN (Reason: Pain (Scale Score 1-3)) Follow up/Referrals: Doctor Seo MD [Primary Care Provider] - Visit Report/Discharge Packet Stand Alone Forms: Patient Portal/API, Stroke Signs & Symptoms Discharge Data Primary Care Provider: Doctor Rayray Attending Provider: Merritt Escoto Admit Date/Time: 07/14/24 03:09 Quality MIPS - Admit I confirm the patient?s Advance Care Plan is present, Code status is documented, Surrogate decision maker is in patient?s record [If Yes, STOP here]: Yes MIPS - Meds 'Current medications' to include all prescriptions, [id number] products, herbals, cannabis/cannabidiol products, and vitamin/mineral/dietary (nutritional) supplements. I have utilized all available resources to obtain, update, or review the patient?s current medications. [If Yes, STOP here]: Yes MIPS - DC The patient has a history of heart transplant or Left Ventricular Assist Device (LVAD). If yes, STOP here.: No The patient has current or prior documentation of left ventricular ejection fraction (LVEF) less than or equal to 40%, or moderate or severely depressed left ventricular systolic function.: No A. The patient was prescribed or already taking an Angiotensin-Converting Enzyme (IRVIN) Inhibitor, or Angiotensin Receptor Yesenia (ARB).: No B. The patient was prescribed or already taking a beta-yesenia. [If Yes to Both A & B, STOP here]: No Patient not prescribed/taking IRVIN or ARB, no reason given.: No Patient not prescribed/taking beta-yesenia, no reason given.: No PROFEE Charge Codes Discharge inpatient/observation: 96222
--- NOTE | 2024-08-24 08:02 | PC.NURSE ---
Late Entry 07/14/24 @ 1158 - Sodium Chloride 0.9% [Normal Saline 0.9%] 1,000 ml: infusion stopped and completed.
== END 2024-07-14 11:58 | disposition home or self-care (01) ==
LOC: ED 21:36 → AC 07-14 03:10
PROVIDERS: Admitting Provider Internal Medicine; Emergency Provider Emergency Medicine; Referring Provider Emergency Medicine; Visit Provider Internal Medicine
DX: J10.1 Influenza due to other identified influenza virus with other respiratory manifestations (principal); R00.0 Tachycardia, unspecified; Z11.52 Encounter for screening for COVID-19
CPT/HCPCS: 36415; 71045; 71275; 80053; 82550; 83036; 83690; 83735; 83880; 84439; 84443; 84484; 84703; 85025; 85379; 85610; 85730; 87633; 93005; 93306; 96361; 96374; 99284; 99291; G0378; J2405; Q9967